=== PATIENT | female | born 1990 ===

== ENCOUNTER 2024-03-24 16:25 | Emergency (ER) | payer OTHER, SELFPAY ==
[2024-03-24 17:13] VITALS: BP 122/100; PULSE 61; RESP 16; TEMP 36.1; O2SAT 98; BMI 19.1
--- NOTE | 2024-03-24 17:13 | ED_ITS ---
HPI - General Adult General Chief complaint: Nausea/Vomiting/Diarrhea Stated complaint: dehydrated History of Present Illness HPI narrative: LWCT Related Data Allergies Allergy/AdvReac Type Severity Reaction Status Date / Time shellfish derived Allergy Unknown Verified 03/24/24 17:15 [facility] Social History Social History Advance Directives: No Advance Directives Information Provided: No Physical Exam ED Vital Signs: BMI result Body Mass Index 19.1 Course Course Course Narrative: This is an RME performed by Anabella Flanagan CNP: Additional HPI, ROS, PE not included below will be deferred to primary provider. Patient is a 33-year-old female presents to the emergency department complaining of nausea, vomiting multiple times today intermittent shakiness, intermittent sweating and chills. Reports ETOH last night, states I do think I'm hungover . Admits to upper ABD pain, generalized soreness, and body aches. Denies , unaware of date LMP. Plan: Labs, urinalysis, hcg, viral panel Discharge Plan Discharge Clinical Impression: Vomiting Patient Disposition: Left W/O Completing Treatment Discharge Date/Time: 03/24/24 18:34
== END 2024-03-24 18:34 | disposition left against medical advice (07) ==
PROVIDERS: Emergency Provider Emergency Medicine
DX: R11.2 Nausea with vomiting, unspecified (principal); Z53.21 Procedure and treatment not carried out due to patient leaving prior to being seen by health care provider
CPT/HCPCS: 99281

== ENCOUNTER 2025-02-21 07:53 | Emergency (ER) | payer OTHER, SELFPAY ==
[2025-02-21 07:57] VITALS: BP 124/83; PULSE 80; RESP 16; TEMP 36.3; O2SAT 100; BMI 18.6
[2025-02-21 08:14] LABS: Basophils Absolute Auto 0.1 X10*3/uL (0.0-0.2); Basophils Percent Auto 0.4 % (0-2); Eosinophils Absolute Auto 0.1 X10*3/uL (0.0-0.4); Eosinophils Percent Auto 0.4 % (0-4); Hematocrit 42.2 % (37.0-47.0); Hemoglobin 15.6 g/dl (12.0-16.0); Imm Gran Abs Auto 0.08 X10*3/uL (0.00-0.03); Imm Gran Pct Auto 0.7 % (0.0-0.4); Lymphocytes Absolute Auto 3.2 X10*3/uL (1.2-4.9); Lymphocytes Percent Auto 26.9 % (20-40); MANUAL DIFF FLAG SCAN; Mean Corpuscular Hemoglobin 32.4 pg (27.0-33.0); Mean Corpuscular Volume 87.6 fL (80.0-98.0); Mean Platelet Volume 9.7 fL (9.4-12.3); Monocytes Absolute Auto 1.7 X10*3/uL (0.1-1.2); Monocytes Percent Auto 14.2 % (2-11); Neutrophils Absolute Auto 6.7 x10*3/uL (2.0-8.3); Neutrophils Percent Auto 57.4 % (45-73); Platelet Count 268 X10*3/uL (160-400); Red Blood Count 4.82 X10*6/uL (4.20-5.50); SCAN SMEAR FLAG 1; White Blood Count 11.7 X10*3/uL (4.8-10.8)
--- NOTE | 2025-02-21 08:24 | ED.GENADULT ---
HPI - General Adult General Chief complaint: Nausea/Vomiting/Diarrhea Stated complaint: Vomiting Time Seen by Provider: 02/21/25 08:23 Source: patient, RN notes reviewed and old records reviewed Mode of arrival: ambulatory Limitations: no limitations History of Present Illness ED Provider: Tayla ORR narrative: Patient is a 34-year-old female presenting to the emergency department with complaint of nausea, vomiting and diarrhea since Wednesday. Denies fevers. States emesis has been nonbloody, nonbilious. Denies any known sick contacts. Complains of generalized abdominal discomfort but denies any pain in 1 specific area. Reports daily cannabis use typically, but states has not been able to smoke since Wednesday due to symptoms. Reports relief of symptoms from showers. Also complains of generalized fatigue/weakness. States has not been able to tolerate any p.o. fluids. complaint: Nausea, vomiting, diarrhea Onset (ago): day(s) Related Data Previous Rx's ?Medication ?Instructions ?Recorded ondansetron 4 mg disintegrating 4 mg PO Q8H PRN nausea and 02/21/25 tablet vomiting #10 tabs Allergies Allergy/AdvReac Type Severity Reaction Status Date / Time shellfish derived Allergy Unknown Verified 02/21/25 07:58 Review of Systems Review of Systems: As per HPI Yes all other systems are reviewed and are negative Constitutional: Constitutional: Reports as per HPI PMF Social History Social History Alcohol intake: current Alcohol intake frequency: 0-2 drinks per day Smoked in Last 30 Days: Yes Use of substances other than those prescribed or required for medical reasons: Yes Substance Use Type: Marijuana Substance Use Frequency: Daily Advance Directives: No Advance Directives Information Provided: Yes Physical Exam ED Vital Signs: Vital Signs - 24 hr 02/21/25 07:57 02/21/25 08:58 02/21/25 10:33 Temperature 97.4 F Pulse Rate 80 67 54 Respiratory Rate 16 16 14 Blood Pressure 124/83 114/81 116/76 Pulse Oximetry 100 99 98 Oxygen Delivery Method Room Air Room Air Room Air BMI result Body Mass Index 18.6 Vital signs have been reviewed and appear to be correct. Blood pressure normal. Heart rate normal. Respiratory rate normal. Temperature normal. Oxygen saturation normal. Const General: cooperative, healthy appearing and no acute distress Orientation/consciousness: oriented to person, oriented to place, oriented to time and patient oriented x3 Limitations: no limitations [facility] Head: Yes normocephalic and Yes atraumatic Ears: external ears normal General nose exam: Normal external nose present Face and sinus: Yes face symmetric Mouth: oropharynx normal and moist mucous membranes Throat: Yes uvula midline Eyes Pupils: Equal, round and reactive pupils present Neck Neck: Yes normal visual inspection and Yes supple Resp Effort & Inspection: normal respiratory effort and able to speak in complete sentences Auscultation: clear to auscultation bilaterally Cardio Rate: regular rate Rhythm: regular rhythm Heart sounds: S1 normal heart sound present and S2 normal heart sound present GI Palpation (GI): Soft to palpation and nontender Auscultation: normoactive bowel sounds General: Yes no CVA tenderness Back/Spine/Pelvis Back: no CVA tenderness Skin General skin exam: elasticity normal and turgor normal Neuro General: oriented to person, oriented to place, oriented to time, patient oriented x3, moves all extremities, no focal motor deficits and CN's II-XI intact bilaterally Cranial nerves: Yes Equal, round and reactive pupils present Cognition (Neuro): normal cognition Extrem General: Yes full ROM, Yes no pedal edema and Yes no calf tenderness Psych Mental Status: mental status grossly normal Affect: normal affect Thought process: Normal thought process present Medications Administered Discontinued Medications Generic Name Dose Route Start Last Admin Trade Name Azq PRN Reason Stop Dose Admin Sodium Chloride 1,000 mls @ 999 mls/hr 02/21/25 08:30 02/21/25 09:39 Ns IV 02/21/25 09:30 Infused .Q1H1M LINDEN Infusion Ondansetron HCl 4 mg 02/21/25 08:24 02/21/25 08:57 Ondansetron Hcl 4 Mg/2 Ml Vial IVPUSH 02/21/25 08:25 4 mg ONCE ONE Administration Medical Decision Making Medical Decision Making [facility] Narrative: Patient is a 34-year-old female presenting to the emergency department with complaint of nausea, vomiting and diarrhea since Wednesday. On exam patient is awake, A+Ox3, VS WNL, afebrile, normal neurological exam without focal deficits, physical exam findings as above. Given reported symptoms and physical exam findings, initial differential includes but is not limited to viral illness, gastroenteritis, electrolyte abnormality, dehydration. Labs notable for slight leukocytosis likely due to vomiting without left shift, slight hyperkalemia likely due to vomiting and diarrhea, advised patient to increase potassium rich foods in her diet over the next few days, slightly elevated BUN with normal creatinine. Urinalysis is without evidence of infection. Patient reports significant improvement in symptoms after IV fluids and Zofran and was able to tolerate p.o. fluids. She reports feeling comfortable for discharge home. Will send prescription for Zofran, advised clear liquid diet today then progression to bland foods as tolerated. Return precautions discussed. Follow up with PCP as needed. Patient verbalized understanding of and agreement with plan. Differential Diagnosis Differential Diagnoses: The differential diagnosis associated with the presentation includes As per [facility] Admission/Observation Consideration of admission/observation: Escalation of care including admission/observation considered Patient would have been admitted to the hospital had their work up had any findings where hospital admission was appropriate and their clinical presentation warranted hospital admission. Lab Data [facility] Lab Attestation statement: I reviewed the patient's lab results. As per [facility] 02/21/25 08:09 02/21/25 08:09 Labs: Lab Results 02/21/25 02/21/25 Range/Units 08:09 09:50 WBC 11.7 H (4.8-10.8) X10*3/uL RBC 4.82 (4.20-5.50) X10*6/uL Hgb 15.6 (12.0-16.0) g/dl Hct 42.2 (37.0-47.0) % MCV 87.6 (80.0-98.0) fL MCH 32.4 (27.0-33.0) pg MCHC 37.0 H (31.0-35.0) g/dl RDW 12.0 (11.0-16.0) % Plt Count 268 (160-400) X10*3/uL MPV 9.7 (9.4-12.3) fL Immature Gran % (Auto) 0.7 H (0.0-0.4) % Neut % (Auto) 57.4 (45-73) % Lymph % (Auto) 26.9 (20-40) % [place] % (Auto) 14.2 H (2-11) % Eos % (Auto) 0.4 (0-4) % Baso % (Auto) 0.4 (0-2) % Lymph # (Auto) 3.2 (1.2-4.9) X10*3/uL [place] # (Auto) 1.7 H (0.1-1.2) X10*3/uL Eos # (Auto) 0.1 (0.0-0.4) X10*3/uL Baso # (Auto) 0.1 (0.0-0.2) X10*3/uL Abs Immat Gran (auto) 0.08 H (0.00-0.03) X10*3/uL Absolute Neuts (auto) 6.7 (2.0-8.3) x10*3/uL Absolute Nucleated RBC 0.000 (0.0-0.012) X10*3/uL Nucleated RBC % (auto) 0.0 (0.0-0.2) /100WBC Smear Tech's Comments VERIFIED Sodium 139 (135-145) mmol/L Potassium 3.2 L (3.3-5.1) mmol/L Chloride 95 L (96-108) mmol/L Carbon Dioxide 33 H (22-29) mmol/L Anion Gap 14 (12-20) BUN 21 H (9-16) mg/dL Creatinine 0.86 (0.5-1.4) mg/dL Estim Creat Clear Calc 68.6 Estimated GFR > 60 Random Glucose 99 (60-115) mg/dL Calcium 10.0 (8.4-10.2) mg/dL Urine Color Dark Yellow Urine Appearance Clear Urine pH 6.5 (5.0-9.0) Ur Specific [place] 1.020 (1.005-1.025) Urine Protein 100 (2+) H (Neg-Trace) mg/dL Urine Glucose (UA) Negative (Negative) mg/dL Urine Ketones Trace (Negative) mg/dL Urine Blood Moderate (2+) H (Negative) Urine Nitrite Negative (Negative) Ur Leukocyte Esterase Negative (Negative) Urine RBC 3-5 H (0-2) /HPF Urine WBC 0-5 (0-5) /HPF Ur Squamous Epith Cells 6-10 (0-2) /HPF Urine Bacteria 1+ (None Seen) Hyaline Casts 3-5 (0-2) /LPF External Record Review External record reviewed: Inpatient record, Office record and Outpatient record Prescription Management I considered prescription management with: Other Discharge Plan Discharge Clinical Impression: Gastroenteritis Patient Disposition: Home, Self-Care Instructions: Gastroenteritis (DC) Additional Instructions: You have been evaluated in the emergency department today for nausea, vomiting, and diarrhea. Your evaluation suggests that your symptoms are most likely due to a viral illness which will improve on it's own with rest and fluids. Remember to drink plenty of fluids at home. You are being prescribed ondansetron which you can use as per the prescription instructions for nausea. Please follow up with your primary care provider within two days. Return to the emergency department if you experience worsening or uncontrolled pain, inability to tolerate fluids by mouth, difficulty breathing, fevers 100.4? F or greater, recurrent vomiting, or any other concerning symptoms. Prescriptions: New ondansetron 4 mg tablet,disintegrating 4 mg PO Q8H PRN (Reason: nausea and vomiting) Qty: 10 0RF Stand Alone Forms: Work/School Release Interventions: ED Discharge Assessment Last Done: 02/21/25 10:39 Print Language: Greek
[2025-02-21 08:27] LABS: Anion Gap 14 (12-20); Blood Urea Nitrogen 21 mg/dL (9-16); Carbon Dioxide 33 mmol/L (22-29); Chloride 95 mmol/L (96-108); Creatinine Clr Calc Pharmacy 68.6; Estimated Glomerular Filt Rate > 60; Glucose Random 99 mg/dL (60-115); Potassium 3.2 mmol/L (3.3-5.1); Sodium 139 mmol/L (135-145)
[2025-02-21 08:45] LABS: SLIDE REVIEW VERIFIED
[2025-02-21] MEDS: 0.9 % Sodium Chloride 1,000 ML 999 ML IV (08:57)
[2025-02-21] MEDS: ondansetron HCL 4 MG/2 ML VIAL IVPUSH (08:57)
[2025-02-21 08:58] VITALS: BP 114/81; PULSE 67; RESP 16; O2SAT 99
--- OUTSIDE RECORDS SUMMARY | 2025-02-21 09:06 | XMS_ITS | Clinical Summary ---
Author Organization Patient Business Ser [facility] [place] Address [address] [place] [address] Care Team Providers Care [employer] Consulting Architect Name Role Phone Keiko Rojo MD Primary Care Prov ider Allergies Active Allergy Reactions Criticality Noted Date Comments Shellfish Derived 10/12/2023 Medications amphetamine-dex troamphetamine XR (ADDERALL XR) 10 mg 24 hr capsule Take 1 capsule (10 mg total) by mouth 1 (one) time each day in the morning. Max Daily Amount: 10 mg 01/24/2025 Active Active Problems Problem Noted Date Diagnosed Date Attention deficit hyperactiv ity disorder (ADHD), combined type 01/24/2025 Bilateral carpal tunnel syndrome Encounters Date Type Department Care Team Description 02/07/2025 2:33 PM EDT - 02/07/2025 11:59 PM EDT Hospital Encounter Radiology Department - [address] [phone] Breast pain, right; Subareolar mass of right breast Discharge Disposition: Home or Self Care 02/07/2025 2:30 PM EDT - 02/07/2025 11:59 PM EDT Hospital Encounter Radiology Department - [address] [phone] Breast pain, right; Subareolar mass of right breast Discharge Disposition: Home or Self Care 01/24/2025 1:30 PM EDT Office Visit Adult Medicine [address] [phone] Vilma Siddiqi PA Breast pain, right (Primary Dx); Subareolar mass of right breast; Screening for depression; Encounter for screening involving social determinants of health (SDoH) from Last 3 Months Immunizations Name Administration Dates Next Due Human Rabies, Human Diploid Cell Culture, (Imovax) 03/24/2023,03/17/2023,03/13/2023,2022 Influenza Quadravalent, MDCK , 0.5ml, preservative free (Flucelvax) 6mo and older 10/12/2023 Tdap Tetanus diptheria acell ular pertussis (Boostrix; Adacel) 7yo and older 10/12/2023 Surgical History Surgery Date Site/Laterality Comments OTHER SURGICAL HISTORY Left PROCEDURE: MT TX ECTOPIC W/O SALPING&/OOPHORECTOMY TYMPANOSTOMY TUBE PLACEMENT Medical History Medical History Date Comments Attention deficit hyperactivity disorder (ADHD), combined type 01/24/2025 Bilateral carpal tunnel syndrome Family History Medical History Relation Name Comments Alcohol abuse Father No Known Problems Mother Relation Name Status Comments Father Alive Mother Alive Social History Tobacco Use Types Packs/Day Years Used Date Smoking Tobacco: Every Day Tobacco Cessation:Ready to Q uit: Not Asked; Counseling Given: Not Answered Alcohol Use Standard Drinks/Week Comments Not Currently 0 (1 standard drink = 0.6 oz pur e alcohol) Housing Instability Answer Date Recorde d Are you worried that in the next 2 months you may not have stable housing? No 01/24/2025 Food Access & Nutrition Answer Date Rec orded Do you have access to a vari ety of food including fruits and vegetables? Yes 01/24/2025 Access to Healthcare Answer Date Record ed Within the last 3 months, mac de la cruz many times did you visit the emergency department for your medical care? 0 01/24/2025 Health Literacy Answer Date Recorded How often do you need to hav e someone help you when you read instructions, pamphlets, or other written material from your doctor or pharmacy? Never 01/24/2025 Caregiver: How often do you need to have someone help you when you read instructions, pamphlets, or other written material from your doctor or pharmacy? Not on file 01/24/2025 Financial Risk Answer Date Recorded How hard is it for you to pa yo for the very basics like food, housing, medical care, and air conditioning / heating? Not very hard 01/24/2025 Transportation Answer Date Recorded Has the lack of transportati on kept you from meetings, work, or from getting things needed for daily living? No Has the lack of transportati on kept you from medical appointments or from getting medications? No 01/24/2025 Social Isolation Answer Date Recorded How often do you feel lonely or isolated from th ose around you? Never 01/24/2025 Food Risk Answer Date Recorded Within the past 12 months we worried whether our food would run out before we got money to buy more. Never true 01/24/2025 Within the past 12 months th e food we bought just didn't last and we didn't have money to get more. Never true 01/24/2025 Dependent Care Answer Date Recorded Do you need help finding or paying for care for your loved ones. For example, child care nurse or elderly care for an older adult? No 01/24/2025 Education Answer Date Recorded Do you think completing more education or training, like finishing a GED, going to college, or learning a trade, would be helpful for you? No 01/24/2025 Employment and Income Answer Date Recor ded During the last four weeks, have you been actively looking for work? No 01/24/2025 Living Situation Answer Date Recorded What is your living situation? 0 01/24/2025 Comments No Sex and Gender Information Value Date Recorded Sex Assigned at Not on file Legal Sex Female 12:13 PM EST Gender Identity Not on file Sexual Orientation Not on file Obstetrics History Para Term AB IAB SAB Ectopic Multiple Livin g Live Births 0 0 0 0 Last Filed Vital Signs Vital Sign Reading Time Taken Comments Blood Pressure 111/72 01/24/2025 1:34 PM EDT Pulse 65 01/24/2025 1:34 PM EDT Temperature 36.5 C (97.7 F) 01/24/2025 1:34 PM EDT Respiratory Rate 16 01/24/2025 1:34 PM EDT Oxygen Saturation 99% 01/24/2025 1:34 PM EDT Inhaled Oxygen Concentration - - Weight 47.8 kg (105 lb 6.4 oz) 01/24/2025 1:34 P M EDT Height 160 cm (5' 3 ) 01/24/2025 1:34 PM EDT Body Mass Index 18.67 01/24/2025 1:34 PM EDT Plan of Treatment Upcoming Encounters Date Type Department Care Team (Late st Contact Info) Description 05/08/2025 3:00 PM EDT Office Visit Adult Medicine [facility] [address] [place] [address] Vilma Siddiqi PA [address] [place] [address] Health Maintenance Due Date Last Done Comments Cervical Cancer Screening: Pap Smear 2010 HIV Screening 10/11/2023 COVID-19 Vaccine ( season) 2024 Influenza Vaccine (Season Ended) 2025 10/12/2023, 08/06/2010, 06/12/2009 Depression Screening 01/24/2026 01/24/2025 Social Influencers of Health Screening 01/24/2026 01/24/2025 Cholesterol Screening (Lipid Panel) 12/21/2028 12/22/2023 DTaP,Tdap,and Td Vaccines (8 - Td or Tdap) 10/12/2033 10/12/2023, 05/10/2007, 04/26/1995, Additional history exists HIB Vaccines Completed 04/26/1995, 03/07, 12/28/1990, Additional history exists IPV Vaccines Completed 04/26/1995, 12/06, 03/28/1991, Additional history exists MMR Vaccines Completed 04/26/1995, 12/06, 07/30/1991 Hepatitis B Vaccines Completed 09/28/1995, 02/16/1995, 12/28/1994 Meningococcal ACWY Vaccine Aged Out 05/10/2007 N o longer eligible based on patient's age to complete this topic HPV Vaccines Completed 09/05/2007, 12/2006, 02/24/2007 Hepatitis A Vaccines Aged Out 04/12/2013 No long er eligible based on patient's age to complete this topic Hepatitis C Screening Completed 12/27/2020 Meningococcal B Vaccine Aged Out No l onger eligible based on patient's age to complete this topic Pneumococcal Vaccine: Pediatrics (0 to 5 Years) and At-Risk Patients (6 to 64 Years) Discontinued RSV Immunization Patients Under 20 months Aged Out No longer eligible based on patient's age to complete this topic Varicella Vaccines Aged Out No longer eligible based on patient's age to complete this topic Procedures Procedure Name Priority Date/Time Associated Diagnosis Comments US BREAST LIMITED RIGHT Routine 02/07/2025 2:59 PM EDT Breast pain, right Subareolar mass of right breast MG MAMMO DIGITAL DIAGNOSTIC W DUONG BILAT Routine 02/07/2025 2:46 PM EDT Breast pain, right Subareolar mass of right breast LIPID PANEL Routine 12/22/2023 from Last 3 Months or Most Recently Relevant to Health Maintenance Results * US Breast Limited Right (02/07/2025 2:59 PM EDT) Anatomical Region Laterality Modality Breast Right Ultrasound 02/07/2025 3:15 PM EDT Impressions 02/07/2025 3:22 PM EDT No mammographic or sonographic correlate for the palpable right breast lump/pain. Further management of symptoms should be clinically based. No mammographic evidence of malignancy in either breast. BREAST DENSITY: C - The breasts are heterogeneously dense which may obscure small masses. BI-RADS CATEGORY: 1 - NEGATIVE RECOMMENDATION: Clinical management of right breast is recommended. Screening bilateral mammogram recommended at age 40 unless clinically indicated earlier. MAMMO LOCATION: [facility], [address] [place] [address], [id number], . -------- FINAL REPORT -------- Dictated By: Priyanka Hernandez Dictated Date: 02/07/2025 15:15 ET Assigned Physician: Priyanka Hernandez Reviewed and Electronically Signed By: Priyanka Hernandez Signed Date: 02/07/2025 15:22 ET Workstation ID: [id number] Transcribed By: Self Edit Transcribed Date: 02/07/2025 15:15 ET Narrative 02/07/2025 3:22 PM EDT EXAM: MG MAMMO DIGITAL DIAGNOSTIC W DUONG BILAT, US BREAST LIMITED RIGHT HISTORY: Palpable right breast lump with pain. COMPARISON: NONE TECHNIQUE: Bilateral mediolateral oblique and craniocaudal views were obtained digitally with 3-D mammogram (digital breast tomosynthesis). Computer-aided detection was utilized in evaluation of this exam (CAD). FINDINGS: No suspicious mass, architectural distortion, or suspicious calcifications. Patient delineated the palpable right breast lump/pain at the inferior retroareolar region. Targeted sonography shows no solid or cystic lesion in the area of concern. Incidental note is made of a mildly dilated duct in the lateral retroareolar region without an intraductal mass. In real-time imaging, adjacent branching ducts are observed in the region. Procedure Note Priyanka Hernandez MD - 02/07/2025 EXAM: MG MAMMO DIGITAL DIAGNOSTIC W DUONG BILAT, US BREAST LIMITED RIGHT HISTORY: Palpable right breast lump with pain. COMPARISON: NONE TECHNIQUE: Bilateral mediolateral oblique and craniocaudal views wereobtained digitally with 3-D mammogram (digital breast tomosynthesis).Computer-aided detection was utilized in evaluation of this exam (CAD). FINDINGS: No suspicious mass, architectural distortion, or suspiciouscalcifications. Patient delineated the palpable right breast lump/pain at the inferiorretroareolar region. Targeted sonography shows no solid or cystic lesionin the area of concern. Incidental note is made of a mildly dilated ductin the lateral retroareolar region without an intraductal mass. Inreal-time imaging, adjacent branching ducts are observed in the region. IMPRESSION: No mammographic or sonographic correlate for the palpable right breastlump/pain. Further management of symptoms should be clinically based. No mammographic evidence of malignancy in either breast. BREAST DENSITY: C - The breasts are heterogeneously dense which mayobscure small masses. BI-RADS CATEGORY: 1 - NEGATIVE RECOMMENDATION: Clinical management of right breast is recommended.Screening bilateral mammogram recommended at age 40 unless clinicallyindicated earlier. MAMMO LOCATION: [facility], [address] [place] [address], [id number], . -------- FINAL REPORT -------- Dictated By: Priyanka Hernandez Dictated Date: 02/07/2025 15:15 ET Assigned Physician: Priyanka Hernandez Reviewed and Electronically Signed By: Priyanka Hernandez Signed Date: 02/07/2025 15:22 ET Workstation ID: [id number] Transcribed By: Self Edit Transcribed Date: 02/07/2025 15:15 ET us Vilma VENTURA IMG US PROCEDURES Final Result * MG Mammo Digital Diagnostic w Duong bilat (02/07/2025 2:46 PM EDT) Anatomical Region Laterality Modality Breast Bilateral Mammography 02/07/2025 3:15 PM EDT Impressions 02/07/2025 3:22 PM EDT No mammographic or sonographic correlate for the palpable right breast lump/pain. Further management of symptoms should be clinically based. No mammographic evidence of malignancy in either breast. BREAST DENSITY: C - The breasts are heterogeneously dense which may obscure small masses. BI-RADS CATEGORY: 1 - NEGATIVE RECOMMENDATION: Clinical management of right breast is recommended. Screening bilateral mammogram recommended at age 40 unless clinically indicated earlier. MAMMO LOCATION: [facility], [address] [place] [address], [id number], . -------- FINAL REPORT -------- Dictated By: Priyanka Hernandez Dictated Date: 02/07/2025 15:15 ET Assigned Physician: Priyanka Hernandez Reviewed and Electronically Signed By: Priyanka Hernandez Signed Date: 02/07/2025 15:22 ET Workstation ID: [id number] Transcribed By: Self Edit Transcribed Date: 02/07/2025 15:15 ET Narrative 02/07/2025 3:22 PM EDT EXAM: MG MAMMO DIGITAL DIAGNOSTIC W DUONG BILAT, US BREAST LIMITED RIGHT HISTORY: Palpable right breast lump with pain. COMPARISON: NONE TECHNIQUE: Bilateral mediolateral oblique and craniocaudal views were obtained digitally with 3-D mammogram (digital breast tomosynthesis). Computer-aided detection was utilized in evaluation of this exam (CAD). FINDINGS: No suspicious mass, architectural distortion, or suspicious calcifications. Patient delineated the palpable right breast lump/pain at the inferior retroareolar region. Targeted sonography shows no solid or cystic lesion in the area of concern. Incidental note is made of a mildly dilated duct in the lateral retroareolar region without an intraductal mass. In real-time imaging, adjacent branching ducts are observed in the region. Procedure Note Priyanka Hernandez MD - 02/07/2025 EXAM: MG MAMMO DIGITAL DIAGNOSTIC W DUONG BILAT, US BREAST LIMITED RIGHT HISTORY: Palpable right breast lump with pain. COMPARISON: NONE TECHNIQUE: Bilateral mediolateral oblique and craniocaudal views wereobtained digitally with 3-D mammogram (digital breast tomosynthesis).Computer-aided detection was utilized in evaluation of this exam (CAD). FINDINGS: No suspicious mass, architectural distortion, or suspiciouscalcifications. Patient delineated the palpable right breast lump/pain at the inferiorretroareolar region. Targeted sonography shows no solid or cystic lesionin the area of concern. Incidental note is made of a mildly dilated ductin the lateral retroareolar region without an intraductal mass. Inreal-time imaging, adjacent branching ducts are observed in the region. IMPRESSION: No mammographic or sonographic correlate for the palpable right breastlump/pain. Further management of symptoms should be clinically based. No mammographic evidence of malignancy in either breast. BREAST DENSITY: C - The breasts are heterogeneously dense which mayobscure small masses. BI-RADS CATEGORY: 1 - NEGATIVE RECOMMENDATION: Clinical management of right breast is recommended.Screening bilateral mammogram recommended at age 40 unless clinicallyindicated earlier. MAMMO LOCATION: [facility], [address] [place] [address], [phone], . -------- FINAL REPORT -------- Dictated By: Priyanka Hernandez Dictated Date: 02/07/2025 15:15 ET Assigned Physician: Priyanka Hernandez Reviewed and Electronically Signed By: Priyanka Hernandez Signed Date: 02/07/2025 15:22 ET Workstation ID: [id number] Transcribed By: Self Edit Transcribed Date: 02/07/2025 15:15 ET us Vilma VENTURA IMG BI PROCEDURES Final Result * Lipid panel (12/22/2023) LDL/HDL Ratio 2 0 - 4 Triglycerides 89 0 - 150 mg/dL Cholesterol 173 0 - 200 mg/dL HDL 77 >=40 mg/dL LDL Cholesterol 79 0 - 100 mg/dL Blood Venous blood specimen / Unknown Historical Provider LAB BLOOD ORDERABLES Amelia l Result from Last 3 Months or Most Recently Relevant to Health Maintenance [place] [address] [address] [place] [address] Care Teams [employer] Relationship Specialty Start Date End Date Keiko Rojo MD [address] [place] [address] [id number] PCP - General 05/04/23
[2025-02-21 09:59] LABS: Appearance Urine Clear; Color Urine Dark Yellow; Glucose Urine UA Negative (Negative); Leukocyte Esterase Urine Negative (Negative); Nitrite Urine Negative (Negative); PH 6.5 (5.0-9.0); UMIC TRIGGER UACC YES; Urine Blood Moderate (2+) (Negative); Urine Ketones Trace mg/dL (Negative); Urine Protein 100 (2+) mg/dL (Neg-Trace)
[2025-02-21 10:08] LABS: Bacteria Urine 1+ (None Seen); WBC Urine 0-5 /HPF (0-5)
[2025-02-21 10:33] VITALS: BP 116/76; PULSE 54; RESP 14; O2SAT 98
[2025-02-21 10:39] VITALS: BP 116/76; PULSE 54; RESP 14; TEMP -17.7; TEMP 0; O2SAT 98
== END 2025-02-21 10:40 | disposition home or self-care (01) ==
PROVIDERS: Emergency Provider Emergency Medicine; PCP Internal Medicine
DX: K52.9 Noninfective gastroenteritis and colitis, unspecified (principal); R11.2 Nausea with vomiting, unspecified; Z79.899 Other long term (current) drug therapy
CPT/HCPCS: 36415; 80048; 81001; 85025; 96361; 96374; 99284; J2405